=== PATIENT | male | born 1945 | race Two or more races ===

== ENCOUNTER 2019-11-25 14:02 | Emergency (ER) | payer SELFPAY ==
[~2019-11-25] VITALS: Ht 182.9 cm; Wt 63.5 kg
--- NOTE | 2019-11-25 14:05 | NUR ---
PT BIB SELF C/O SI "I WANT TO JUMP IN FRONT OF THE TRAIN" DENIES HI, PT IS AAOX4, NOT IN RESPIRATORY DISTRESS, V/S STABLE, KEPT RESTED AND COMFORTABLE, WILL CONTINUE TO MONITOR.
--- NOTE | 2019-11-25 14:15 | NUR ---
SECURITY AT BEDSIDE FOR WANDING
--- NOTE | 2019-11-25 14:18 | NUR ---
URINAL GIVEN BUT UNABLE TO PROVIDE URINE SPECIMEN THIS TIME.
--- NOTE | 2019-11-25 14:41 | NUR ---
ER PHLEB AT BEDSIDE FOR BLOOD DRAW.
--- NOTE | 2019-11-25 14:45 | NUR ---
Patient given written and verbal discharge instructions. Patient verbalizes understanding of instructions. Patient is ambulatory with steady gait. Refuses offer of detention placement. Patient given list of available shelters in surrounding area.
--- NOTE | 2019-11-25 14:45 | NUR ---
PT STATED THAT HE IS NOT SUICIDAL ANYMORE AND WANTS TO BE DISCHARGED, MD AWARE.
[2019-11-25 14:48] VITALS: BP 120/77
== END 2019-11-25 14:51 | disposition home or self-care (01) ==
LOC: ER 14:04
DX: F32.9 Major depressive disorder, single episode, unspecified (principal); R45.851 Suicidal ideations; Z59.0 Homelessness

== ENCOUNTER 2020-01-11 08:22 | Emergency (ER) | payer SELFPAY ==
[~2020-01-11] VITALS: Ht 182.9 cm; Wt 71.7 kg
--- NOTE | 2020-01-11 08:57 | NUR ---
PT AMBULATORY TO ER BED 07. C/O DEPRESSION, SUICIDAL STATES NO DESIRE TO LIVE ANYMORE. PLAN ON "CUTTING HIS WRIST." PT GOWNED. STABLE VITALS. NAD NOTED. SITTER CALLED. AWAITING MD MCCONNELL.
--- NOTE | 2020-01-11 10:22 | NUR ---
DR SNOWDEN AT BEDSIDE FOR EVAL.
--- NOTE | 2020-01-11 10:36 | NUR ---
COMBINATION WELDER AT BEDSIDE FOR BLOOD DRAW.
[2020-01-11 10:44] LABS: BASOPHILS % (AUTO) 0.5 % (0.0-2.0); HEMATOCRIT 44 % (39-51); HEMOGLOBIN 14.5 g/dL (13.5-17.5); LYMPHOCYTES # (AUTO) 1.5 /CMM (0.8-4.8); MEAN CORPUSCULAR HGB CONC 33 g/dl (31.0-36.0); MEAN CORPUSCULAR VOLUME 95 fL (80-96); MONOCYTES # (AUTO) 0.7 /CMM (0.1-1.30); MONOCYTES % (AUTO) 11.2 % (2.0-12.0); NEUTROPHILS # (AUTO) 4.1 /CMM (1.8-8.9); NEUTROPHILS % (AUTO) 64.3 % (43.0-81.0); PLATELET COUNT (AUTO) 157 /CMM (150-450); RED BLOOD CELL COUNT(AUTO) 4.64 MIL/uL (4.5-6.0); WHITE BLOOD COUNT (AUTO) 6.3 K/uL (4.3-11.0)
[2020-01-11 10:49] LABS: CALCIUM, SERUM 9.1 mg/dL (8.5-10.1); CARBON DIOXIDE 33 mmol/L (21-32); CHLORIDE 104 mmol/L (98-107); GLUCOSE 85 mg/dL (74-106); POTASSIUM 4.3 mmol/L (3.5-5.1); SODIUM SERUM 141 mmol/L (136-145); UREA NITROGEN, BLOOD 27 mg/dL (7-18)
[2020-01-11 10:54] LABS: ALANINE AMINOTRANSFERASE 13 U/L (12-78); ALBUMIN 3.7 g/dL (3.4-5.0); ALCOHOL, BLOOD < 3 mg/dL (0-0); ALKALINE PHOSPHATASE 90 U/L (46-116); ASPARTATE AMINOTRANSFERASE 15 U/L (15-37); BILIRUBIN,DIRECT 0.3 mg/dL (0.0-0.2); TOTAL PROTEIN, SERUM 7.1 g/dL (6.4-8.2)
[2020-01-11 10:55] LABS: ACETAMINOPHEN 0 ug/ml (10-30)
[2020-01-11 11:17] LABS: APPEARANCE,URINE Clear (CLEAR); BILIRUBIN,URINE MODERATE (NEGATIVE); BLOOD, URINE Negative Ery/uL (NEGATIVE); COLOR,URINE Yellow (YELLOW); KETONES,URINE Trace (NEGATIVE); LEUKOCYTE ESTERASE ,URINE Negative (NEGATIVE); NITRITE, URINE Negative (NEGATIVE); PROTEIN,URINE Trace mg/dl (NEGATIVE); UGLUCOSE Negative (NEGATIVE)
[2020-01-11 11:21] LABS: BACTERIA,URINE Rare /HPF (None Seen); RBC,URINE 0-2 /HPF (0-2); SQUAMOUS EPITHELIAL CELL,UR Rare /HPF (None Seen); WBC,URINE 0-2 /HPF (0-3)
--- NOTE | 2020-01-11 11:30 | NUR ---
PT SLEEPING IN BED. EASILY AROUSABLE. STABLE VITALS. WILL CONTINUE TO MONITOR.
--- NOTE | 2020-01-11 12:35 | NUR ---
CALLED ART [phone] SUGGESTED TO HAVE BROOKE SPEAK WITH PT FIRST. SEE BED 10 NOTES. NETWORK SPECIALIST BROOKE NOT AVAILABLE.
--- NOTE | 2020-01-11 13:19 | NUR ---
PT PROVIDED W/ MEAL TRAY.
--- NOTE | 2020-01-11 13:51 | NUR ---
SENIOR FIRMWARE ENGINEER BROOKE NOT AVAILABLE CONTACTED ART.
--- NOTE | 2020-01-11 13:51 | NUR ---
ART IN THIRD FLOOR. AND WILL BE HERE SHORTLY.
--- NOTE | 2020-01-11 14:05 | NUR ---
PT WANTS TO LEAVE. DENIES SI AT THIS TIME. REQUESTED TO STAY AND OFFERED COFFEE. AWAITNG PSYCH EVAL.
--- NOTE | 2020-01-11 14:30 | NUR ---
PT WANTS TO LEAVE ED. STATES NO LONGER SUICIDAL. REFUSED TO SIGN AMA FORM.
[2020-01-11 15:36] VITALS: BP 125/70
== END 2020-01-11 14:30 | disposition left against medical advice (07) ==
LOC: ER 08:34
DX: R45.851 Suicidal ideations (principal); Z59.0 Homelessness
CPT/HCPCS: 36415; 80048; 80076; 80305; 80307; 80329; 81001; 85025; 99285; G0480; 81000-TC

== ENCOUNTER 2020-01-23 14:21 | Emergency (ER) | payer MEDICAID ==
[~2020-01-23] VITALS: Ht 177.8 cm; Wt 63.5 kg
--- NOTE | 2020-01-23 14:21 | NUR ---
PT BIB SELF C/O SUICIDAL IDEATION NO SPECIFIC PLAN. PT IS AAOX4, NOT IN RESPIRATORY DISTRESS, V/S STABLE, KEPT RESTED AND COMFORTABLE. WILL CONTINUE TO MONITOR. SITTER AT BEDSIDE.
--- NOTE | 2020-01-23 14:32 | NUR ---
PT SEEN AND EXAMINED BY .
--- NOTE | 2020-01-23 14:47 | NUR ---
ER PHLEB AT BEDSIDE FOR BLOOD DRAW.
[2020-01-23 15:03] LABS: BASOPHILS # (AUTO) 0.1 /CMM (0.0-0.2); BASOPHILS % (AUTO) 0.7 % (0.0-2.0); EOSINOPHILS % (AUTO) 1.2 % (0.0-6.0); HEMATOCRIT 41 % (39-51); HEMOGLOBIN 13.7 g/dL (13.5-17.5); LYMPHOCYTES # (AUTO) 1.2 /CMM (0.8-4.8); LYMPHOCYTES % (AUTO) 15.7 % (20.0-44.0); MEAN CORPUSCULAR HGB CONC 33 g/dl (31.0-36.0); MEAN CORPUSCULAR VOLUME 94 fL (80-96); MONOCYTES # (AUTO) 0.9 /CMM (0.1-1.30); MONOCYTES % (AUTO) 11.7 % (2.0-12.0); NEUTROPHILS # (AUTO) 5.4 /CMM (1.8-8.9); NEUTROPHILS % (AUTO) 70.7 % (43.0-81.0); PLATELET COUNT (AUTO) 252 /CMM (150-450); RED BLOOD CELL COUNT(AUTO) 4.39 MIL/uL (4.5-6.0); WHITE BLOOD COUNT (AUTO) 7.7 K/uL (4.3-11.0)
[2020-01-23 15:19] LABS: ALANINE AMINOTRANSFERASE 13 U/L (12-78); ALBUMIN 3.3 g/dL (3.4-5.0); ALCOHOL, BLOOD < 3 mg/dL (0-0); ALKALINE PHOSPHATASE 76 U/L (46-116); ASPARTATE AMINOTRANSFERASE 14 U/L (15-37); BILIRUBIN,DIRECT 0.3 mg/dL (0.0-0.2); BILIRUBIN,TOTAL 0.8 mg/dL (0.2-1.0); CALCIUM, SERUM 8.9 mg/dL (8.5-10.1); CARBON DIOXIDE 34 mmol/L (21-32); CHLORIDE 100 mmol/L (98-107); CREATININE 0.8 mg/dL (0.6-1.3); GLUCOSE 104 mg/dL (74-106); POTASSIUM 3.5 mmol/L (3.5-5.1); SALICYLATE 3.1 mg/dL (2.8-20.0); SODIUM SERUM 140 mmol/L (136-145); TOTAL PROTEIN, SERUM 7.1 g/dL (6.4-8.2); UREA NITROGEN, BLOOD 20 mg/dL (7-18)
[2020-01-23 15:20] LABS: ACETAMINOPHEN 0 ug/ml (10-30)
--- NOTE | 2020-01-23 16:07 | NUR ---
CALLED ADITI ALEJO WILL SPEAK TO INTAKE RE PYSCH ADMISSION
[2020-01-23 17:24] LABS: BILIRUBIN,URINE SMALL (NEGATIVE); BLOOD, URINE Negative Ery/uL (NEGATIVE); KETONES,URINE 15 (NEGATIVE); LEUKOCYTE ESTERASE ,URINE Negative (NEGATIVE); NITRITE, URINE Negative (NEGATIVE); PH,URINE 5.5 (5.0-8.0); PROTEIN,URINE Trace mg/dl (NEGATIVE); UGLUCOSE Negative (NEGATIVE)
[2020-01-23 17:31] LABS: APPEARANCE,URINE SLIGHTLY HAZY (CLEAR); COLOR,URINE DARK YELLOW (YELLOW)
[2020-01-23 17:40] LABS: RBC,URINE 0-2 /HPF (0-2); WBC,URINE 0-2 /HPF (0-3)
[2020-01-23 17:41] LABS: BACTERIA,URINE Rare /HPF (None Seen); SQUAMOUS EPITHELIAL CELL,UR Rare /HPF (None Seen)
--- NOTE | 2020-01-23 17:50 | NUR ---
CRISIS HOME CARE SPECIALIST DAYNA WILL SEE PATIENT, ETA 2000
--- NOTE | 2020-01-23 19:22 | NUR ---
Pt evaluated by Ela Crisis Evalutator. Pt cleared by Ela.
--- NOTE | 2020-01-23 20:33 | NUR ---
PT IS MEDICALLY AND PSYCHIATRICALLY CLEARED FOR DISCHARGE.
--- NOTE | 2020-01-23 20:34 | NUR ---
Patient discharged to home in stable condition. Written and verbal after care instructions given. Patient verbalizes understanding of instruction. Pt ambulatory with a steady gait. Pt walked out before signing ACI and homeless waiver.
[2020-01-23 20:36] VITALS: BP 133/72
== END 2020-01-23 20:37 | disposition home or self-care (01) ==
LOC: ER 14:21
DX: R45.851 Suicidal ideations (principal); Z90.89 Acquired absence of other organs; Z59.0 Homelessness
CPT/HCPCS: 36415; 80048; 80076; 80305; 80307; 80329; 81001; 85025; 99284; G0480; 81000-TC

== ENCOUNTER 2020-07-15 01:01 | Emergency (ER) | payer MEDICAID ==
[~2020-07-15] VITALS: Ht 175.3 cm; Wt 77.1 kg
[2020-07-15 06:10] LABS: BASOPHILS # (AUTO) 0.1 /CMM (0.0-0.2); BASOPHILS % (AUTO) 0.8 % (0.0-2.0); EOSINOPHILS % (AUTO) 1.7 % (0.0-6.0); HEMATOCRIT 40 % (39-51); HEMOGLOBIN 13.3 g/dL (13.5-17.5); LYMPHOCYTES % (AUTO) 14.7 % (20.0-44.0); MEAN CORPUSCULAR HGB CONC 33 g/dl (31.0-36.0); MEAN CORPUSCULAR VOLUME 93 fL (80-96); MONOCYTES # (AUTO) 0.7 /CMM (0.1-1.30); MONOCYTES % (AUTO) 11.4 % (2.0-12.0); NEUTROPHILS # (AUTO) 4.6 /CMM (1.8-8.9); NEUTROPHILS % (AUTO) 71.4 % (43.0-81.0); PLATELET COUNT (AUTO) 244 /CMM (150-450); RED BLOOD CELL COUNT(AUTO) 4.33 MIL/uL (4.5-6.0); WHITE BLOOD COUNT (AUTO) 6.5 K/uL (4.3-11.0)
[2020-07-15 06:17] LABS: CALCIUM, SERUM 9.2 mg/dL (8.5-10.1); CARBON DIOXIDE 33 mmol/L (21-32); CHLORIDE 102 mmol/L (98-107); CREATININE 0.8 mg/dL (0.6-1.3); GLUCOSE 98 mg/dL (74-106); POTASSIUM 4.1 mmol/L (3.5-5.1); SODIUM SERUM 138 mmol/L (136-145); UREA NITROGEN, BLOOD 21 mg/dL (7-18)
[2020-07-15 06:32] LABS: ALANINE AMINOTRANSFERASE 19 U/L (12-78); ALBUMIN 3.1 g/dL (3.4-5.0); ALCOHOL, BLOOD < 3 mg/dL (0-0); ALKALINE PHOSPHATASE 89 U/L (46-116); ASPARTATE AMINOTRANSFERASE 16 U/L (15-37); BILIRUBIN,DIRECT 0.2 mg/dL (0.0-0.2); BILIRUBIN,TOTAL 0.5 mg/dL (0.2-1.0)
[2020-07-15 06:42] LABS: ACETAMINOPHEN 0 ug/ml (10-30)
--- NOTE | 2020-07-15 07:55 | NUR ---
facesheet and clinicals faxed over to [facility].
--- NOTE | 2020-07-15 10:35 | NUR ---
This SW followed-up regarding referral made by ED RN Ervin to [facility] Intake . SW spoke with CJ, per CJ clinicals have been given to Nursing Cloth Shearing Supervisor pending review. Per CJ, CJ to follow-up after review. Plan: SW will follow-up with CJ and [facility] Intake if no update is provided. SW remains available for all needs regarding this patient.
--- NOTE | 2020-07-15 10:37 | NUR ---
SW met with the patient. Patient is a 75 year-old male who presented to [facility] ED with suicidal ideation. Patient confirmed this information with this SW however did not want to provide more information to this SW. SW attempted to discuss homeless community resources with the patient however patient refused to speak with this SW. SW placed a copy of these resources next to the patient for patient's convenience. SW also attempted to speak with patient regarding voluntary psychiatric hospitalization and patient continued to refuse to speak with this SW. Plan: SW will follow-up regarding referral made for voluntary psychiatric hospitalization. SW will coordinate with ED staff for a safe and proper discharge regarding this patient. SW remains available for all needs regarding this patient. SW provided the following resources to the patient. Substance Abuse resources provided included: [facility] Substance Abuse Self-Helpline ([facility]) ; CRI -HELP [address]99 Count Includes [facility]. [place] [address] ; [facility] [address] [facility] [address] ; [facility] [address] [facility] [address] ; [facility] [address] [facility] [phone] ; [facility] [address]843 [address] [facility] [phone] ; [facility] [address] [facility] [phone] ; [facility] Substance Abuse Helpline([facility])-[facility] ; [facility] ; [facility]; Cri-Help [place]; [facility] Recovery [place]; [place] [facility]; [place]; [facility] [place]; Alcoholics Anonymous -SFV; Pg-Gztc-Kjhxhqt ; Marijuana Anonymous -SFV; Narcotics Anonymous www.na.org. Hygiene: [facility]: [address] [place] ; [facility] [address] [facility] ; [facility] [address], [place] . Food Resources: [facility] at [facility]- [address] [place]; Meet Each Need with Dignity ([facility]) [address] [facility] HospitalMarlyn [place]; [facility] Food Pantry 9208 [facility]; [facility] [address] [facility]. Mental Health resources provided: [facility] [address] [place], [place] [phone] ; [facility] Mental [facility] [address] [facility] [address], [place], [place] [phone] ; [facility] [address] [facility] [address] [place], [place] [phone] ; [facility] [address] [place], [place] [phone] Healthcare Clinics: [facility] [address] [facility] [address], [address] [place]. [place] ; [facility] [address] [facility] [address] [place] [address]; [facility] [address] [facility]. [place] [phone] Winter Shelters: [facility] [place] [facility] [address] [place] [address] 67 [place]; [facility] [place] [employer] [address] Rogelio Wright, [address] 27 [place]; [facility] the [place]* [facility] Confidential (please call for location) 52 [place]; [facility] [place] [facility] [address] [place] [address] 75 [place]; [facility] [place] [address] [place], [address] 15 Women; [facility] [address] [facility] [address] 49 [place]; First To Serve* [facility] 7600 [facility], [address] 73 [place]; [facility] [address], [address] 20 Women; Home At Last [facility] [address] [facility], [address] 63 [place]; [facility] [address], [address] 20 Women; Home At Last [facility] [address] [facility], [address] 63 [place]; Home at Last [facility] [address] [facility], [address] 20 Males; Home At Last [address] [place] [address] 5[address] SDecatur Health Systemse.[facility] , [address] 20 GIA; [facility] [facility] enModus [address] [address] 80 [place]; [facility] Program Sites Transportation pick and shovel man at [facility] (near the [place]) - Toshia Marquez/EDNA [place] [address] Time: 3:30p.m. to 4:15p.m. and [facility] at [address] [facility] [address] Time: 5:00p.m. No walk-ins allowed. Individuals must be picked up at [facility] ([address] [place] [address]) to access the site. Transportation by bus.
--- NOTE | 2020-07-15 11:31 | NUR ---
JOSH Gaytan received a call regarding this patient from Intake at [facility]. Per intake client care representative urine analysis is needed for review. JOSH Gaytan informed this note copywriter regarding clinicals. SW to follow-up with ED support staff regarding urine analysis. JOSH remains available for all needs regarding this patient.
--- NOTE | 2020-07-15 11:33 | NUR ---
JOSH spoke with Kelly Solitario regarding call from [facility]. Kelly Solitario confirmed to this SW that the patient did not provide urine therefore patient urine analysis is incomplete. Kelly Solitario to follow-up with the patient for these labs. Plan: JOSH will follow-up with Kelly Solitario and provide new clinicals to [facility] (fax) for transfer.
[2020-07-15 11:36] LABS: BILIRUBIN,URINE SMALL (NEGATIVE); COLOR,URINE YELLOW (YELLOW); LEUKOCYTE ESTERASE ,URINE Negative (NEGATIVE); NITRITE, URINE Negative (NEGATIVE); PROTEIN,URINE Trace mg/dl (NEGATIVE); UGLUCOSE Negative (NEGATIVE)
[2020-07-15 11:48] LABS: BACTERIA,URINE Few /HPF (None Seen); MUCUS,URINE Few /LPF (None Seen); RBC,URINE 0-2 /HPF (0-2); SQUAMOUS EPITHELIAL CELL,UR 0-2 /HPF (None Seen); WBC,URINE 0-2 /HPF (0-3)
--- NOTE | 2020-07-15 12:19 | NUR ---
SW refaxed clinicals to [facility] Intake with updated labs. Plan: SW to follow-up with [facility].
--- NOTE | 2020-07-15 12:37 | NUR ---
CALL FROM BRANDIE, GOING TO [facility] [address] , ACCEPTED BY DR EDWARDS
--- NOTE | 2020-07-15 12:38 | NUR ---
REPORT TO [phone] X [phone]
--- NOTE | 2020-07-15 12:54 | NUR ---
CALLED [facility] FOR TRANSPORT. ETA IS 2 PM
[2020-07-15 13:25] VITALS: BP 126/78
--- NOTE | 2020-07-15 13:45 | NUR ---
REPORT GIVEN TO CRISTAL SRIVASTAVA FOR BRIAN
--- NOTE | 2020-07-15 13:55 | NUR ---
TRANSPORTED TO [facility] IN STABLE CONDITION.
== END 2020-07-15 13:57 ==
LOC: ER 01:09
DX: R45.851 Suicidal ideations (principal); Z59.0 Homelessness; Z20.828 Contact with and (suspected) exposure to other viral communicable diseases
CPT/HCPCS: 36415; 80048; 80076; 80299; 80307; 80320; 81001; 85025; 87426; 99285; C9803; G0480

== ENCOUNTER 2020-08-08 18:38 | Emergency (ER) | payer MEDICAID ==
[~2020-08-08] VITALS: Ht 182.9 cm; Wt 59.0 kg
[2020-08-08] MEDS ORDERED: IV NS 0.9% 1,000 ML BAG IV ONE (20:30)
[2020-08-08 20:40] LABS: BASOPHILS % (AUTO) 0.6 % (0.0-2.0); EOSINOPHILS % (AUTO) 1.3 % (0.0-6.0); HEMATOCRIT 30 % (39-51); HEMOGLOBIN 10.1 g/dL (13.5-17.5); LYMPHOCYTES # (AUTO) 1.2 /CMM (0.8-4.8); LYMPHOCYTES % (AUTO) 21.3 % (20.0-44.0); MEAN CORPUSCULAR HGB CONC 33 g/dl (31.0-36.0); MEAN CORPUSCULAR VOLUME 94 fL (80-96); MONOCYTES # (AUTO) 0.7 /CMM (0.1-1.30); MONOCYTES % (AUTO) 12.4 % (2.0-12.0); NEUTROPHILS # (AUTO) 3.7 /CMM (1.8-8.9); NEUTROPHILS % (AUTO) 64.4 % (43.0-81.0); PLATELET COUNT (AUTO) 226 /CMM (150-450); RED BLOOD CELL COUNT(AUTO) 3.26 MIL/uL (4.5-6.0); WHITE BLOOD COUNT (AUTO) 5.8 K/uL (4.3-11.0)
[2020-08-08 20:51] LABS: CALCIUM, SERUM 8.2 mg/dL (8.5-10.1); CARBON DIOXIDE 34 mmol/L (21-32); CHLORIDE 101 mmol/L (98-107); GLUCOSE 90 mg/dL (74-106); SODIUM SERUM 138 mmol/L (136-145); UREA NITROGEN, BLOOD 22 mg/dL (7-18)
[2020-08-08 21:02] LABS: ACETAMINOPHEN < 0 ug/ml (10-30); ALANINE AMINOTRANSFERASE 16 U/L (12-78); ALBUMIN 2.8 g/dL (3.4-5.0); ALCOHOL, BLOOD < 3 mg/dL (0-0); ALKALINE PHOSPHATASE 91 U/L (46-116); ASPARTATE AMINOTRANSFERASE 13 U/L (15-37); BILIRUBIN,DIRECT 0.1 mg/dL (0.0-0.2); BILIRUBIN,TOTAL 0.4 mg/dL (0.2-1.0); TOTAL PROTEIN, SERUM 7.1 g/dL (6.4-8.2)
[2020-08-08] MEDS ORDERED: CT SWABBABLE VALVE TRANS SET 1 EA INFUS.SET MC ONE (21:02)
[2020-08-08] MEDS ORDERED: IV NS 0.9% 250 ML IV ONE (21:02)
[2020-08-08] MEDS ORDERED: IOHEXOL-350 100 ML VIAL IV ONE (21:02)
[2020-08-08 21:12] LABS: BILIRUBIN,URINE SMALL (NEGATIVE); LEUKOCYTE ESTERASE ,URINE Negative (NEGATIVE); NITRITE, URINE Negative (NEGATIVE); PH,URINE 5.5 (5.0-8.0); PROTEIN,URINE Trace mg/dl (NEGATIVE); UGLUCOSE Negative (NEGATIVE)
[2020-08-08 21:17] LABS: COLOR,URINE YELLOW (YELLOW)
[2020-08-08 21:23] LABS: BACTERIA,URINE None seen /HPF (None Seen); RBC,URINE 0-2 /HPF (0-2); SQUAMOUS EPITHELIAL CELL,UR Few /HPF (None Seen); WBC,URINE 0-2 /HPF (0-3)
[2020-08-09] MEDS ORDERED: CLINDAMYCIN 600 MG in IV D5W 100 ML IV ONE (09:00)
[2020-08-09 10:20] VITALS: BP 92/38
== END 2020-08-09 10:28 ==
LOC: ER 19:30
DX: S61.512A Laceration without foreign body of left wrist, initial encounter (principal); S66.129A Laceration of flexor muscle, fascia and tendon of unspecified finger at wrist and hand level, initial encounter; X78.9XXA Intentional self-harm by unspecified sharp object, initial encounter; Y92.89 Other specified places as the place of occurrence of the external cause; Z59.0 Homelessness; Z20.822 Contact with and (suspected) exposure to COVID-19
CPT/HCPCS: 36415; 73206; 80048; 80076; 80299; 80307; 80320; 81001; 85025; 87426; 96361; 96365; 99285; C9803; J3490; J7030; J7050; J7060; Q9967; G0480

== ENCOUNTER 2020-08-29 17:42 | Emergency (ER) | payer SELFPAY ==
[~2020-08-29] VITALS: Ht 182.9 cm; Wt 53.5 kg
--- NOTE | 2020-08-29 17:50 | NUR ---
BIBS "Been Having Pain and pus in chest x1mo was told I have Cancer", TO ER BED 11, HOOKED TO MONITOR, CHANGED TO HOSP GOWN, WARM BLANKET PROVIDED. PATIENT AAO x 4. PATIENT STATES HE IS SUICIDAL BY CUTTING HIMSELF. 1:1 SITTER AT BEDSIDE SUICIDAL PRECAUTIONS APPLIED, 1:1 SITTER AT BEDSIDE. AWAITING MD MCCONNELL
--- NOTE | 2020-08-29 17:51 | NUR ---
DR ORTIZ AT BEDSIDE
--- NOTE | 2020-08-29 17:54 | NUR ---
Stephanie cespedes in [facility] - 08/29/[address] at [address] ORTIZ AT BEDSIDE
[2020-08-29 18:21] LABS: BASOPHILS % (AUTO) 0.5 % (0.0-2.0); EOSINOPHILS % (AUTO) 1.1 % (0.0-6.0); HEMATOCRIT 33 % (39-51); HEMOGLOBIN 10.7 g/dL (13.5-17.5); LYMPHOCYTES # (AUTO) 1.3 /CMM (0.8-4.8); LYMPHOCYTES % (AUTO) 14.7 % (20.0-44.0); MEAN CORPUSCULAR HGB CONC 33 g/dl (31.0-36.0); MEAN CORPUSCULAR VOLUME 89 fL (80-96); MONOCYTES # (AUTO) 0.9 /CMM (0.1-1.30); MONOCYTES % (AUTO) 10.3 % (2.0-12.0); NEUTROPHILS # (AUTO) 6.3 /CMM (1.8-8.9); NEUTROPHILS % (AUTO) 73.4 % (43.0-81.0); PLATELET COUNT (AUTO) 327 /CMM (150-450); RED BLOOD CELL COUNT(AUTO) 3.68 MIL/uL (4.5-6.0); WHITE BLOOD COUNT (AUTO) 8.6 K/uL (4.3-11.0)
[2020-08-29 18:39] LABS: CARBON DIOXIDE 31 mmol/L (21-32); CHLORIDE 103 mmol/L (98-107); CREATININE 0.9 mg/dL (0.6-1.3); GLUCOSE 107 mg/dL (74-106); POTASSIUM 3.7 mmol/L (3.5-5.1); SODIUM SERUM 140 mmol/L (136-145); UREA NITROGEN, BLOOD 17 mg/dL (7-18)
[2020-08-29 18:52] LABS: B-TYPE NATRIURETIC PEPTIDE 342 PG/ML (0-125)
[2020-08-29 19:00] LABS: ALANINE AMINOTRANSFERASE 12 U/L (12-78); ALBUMIN 2.7 g/dL (3.4-5.0); ALKALINE PHOSPHATASE 87 U/L (46-116); ASPARTATE AMINOTRANSFERASE 11 U/L (15-37); BILIRUBIN,DIRECT 0.2 mg/dL (0.0-0.2); BILIRUBIN,TOTAL 0.6 mg/dL (0.2-1.0); TOTAL PROTEIN, SERUM 7.1 g/dL (6.4-8.2)
[2020-08-29 19:01] LABS: ACETAMINOPHEN < 2 ug/ml (10-30)
--- NOTE | 2020-08-29 19:05 | NUR ---
URINE SAMPLE COLLECTED AND SENT TO LAB
[2020-08-29 19:09] LABS: ALCOHOL, BLOOD < 3 mg/dL (0-0)
[2020-08-29 19:19] LABS: BILIRUBIN,URINE SMALL (NEGATIVE); COLOR,URINE YELLOW (YELLOW); LEUKOCYTE ESTERASE ,URINE Negative (NEGATIVE); NITRITE, URINE Negative (NEGATIVE); PH,URINE 5.5 (5.0-8.0); PROTEIN,URINE Trace mg/dl (NEGATIVE); UGLUCOSE Negative (NEGATIVE)
[2020-08-29 19:24] LABS: BACTERIA,URINE Rare /HPF (None Seen); RBC,URINE NONE SEEN /HPF (0-2); SQUAMOUS EPITHELIAL CELL,UR Few /HPF (None Seen); WBC,URINE NONE SEEN /HPF (0-3)
--- NOTE | 2020-08-29 20:11 | NUR ---
PT AAOX4. DENIES PAIN, VSS. DENIES SI AND HI. AWARE OF PLAN OF CARE. PT WILL BE DISCHARGED.
--- NOTE | 2020-08-29 20:27 | NUR ---
Patient discharged to home in stable condition. Written and verbal after care instructions given. Patient verbalizes understanding of instruction.
--- NOTE | 2020-08-29 20:27 | NUR ---
IV removed. Catheter intact and site benign. Pressure and 4x4 applied to site. No bleeding noted.
[2020-08-29 20:28] VITALS: BP 111/69
== END 2020-08-29 20:28 | disposition home or self-care (01) ==
LOC: ER 17:45
DX: R07.89 Other chest pain (principal); Z59.0 Homelessness; F17.200 Nicotine dependence, unspecified, uncomplicated
CPT/HCPCS: 36415; 71045-TC; 80048-TC; 80076-TC; 81001; 83880; 84484-TC; 85025-TC; G0480

== ENCOUNTER → 2021-05-01 | Emergency (ER) | payer SELFPAY ==
[~2021-05-01] VITALS: Ht 182.9 cm; Wt 65.8 kg
--- NOTE | 2021-05-01 14:45 | NUR ---
[facility] MENTAL HEALTH STAFF AFTER HE WAS FOUND SLEEPING IN THE DIRT WITH ABRASION TO LEFT ELFOW AFTER A TRIP/FALL. REFUSED HIS VITAL SIGNS TO BE CHECK
--- NOTE | 2021-05-01 14:55 | NUR ---
COMPLETING HIS EXAMINATION.DR ELLISON WAS DOING MEDICAL SREENING EXAM WHEN HE DECIDED TO LEAVE WITHOUT
== END | disposition left against medical advice (07) ==
LOC: ER 14:37
DX: S50.312A Abrasion of left elbow, initial encounter (principal); Z60.2 Problems related to living alone; Z59.00 Homelessness unspecified; W01.0XXA Fall on same level from slipping, tripping and stumbling without subsequent striking against object, initial encounter; Y93.89 Activity, other specified; Y92.89 Other specified places as the place of occurrence of the external cause; Y99.8 Other external cause status